=== PATIENT | male | born 1990 | race Caucasian/White ===

== ENCOUNTER 2018-06-22 04:53 | Emergency (ER) | payer OTHER ==
--- NOTE | 2018-06-22 05:26 | ED ---
Skin Complaint - HPI Summary HPI Summary: This patient is a 28 year old M presenting to [facility] with a chief complaint of a diffuse pruritic erythematous rasch to the abdomen and back and pants line for the past day. Patient reports a history of eczema and environmental allegies. Symptoms are unrelieved by hydrocortisone and antihistamines. Patient has not other complaints at this time. - History of Current Complaint Chief Complaint: EDRashSkinAbscess Time Seen by Provider: 06/22/18 05:17 Stated Complaint: RASH Hx Obtained From: Patient Onset/Duration: Started Days Ago Skin Exposure Onset/Duration: Days Ago Timing: Constant Pain Intensity: 0 Skin Location: Diffuse, Abdomen Character: Pruritus, Redness Alleviating Symptom(s): Nothing Associated Signs & Symptoms: Negative - Allergy/Home Medications Allergies/Adverse Reactions: Allergies Allergy/AdvReac Type Severity Reaction Status Date / Time Penicillins Allergy Unknown Verified 06/22/18 04:57 Reaction Details PMH/Surg Hx/FS Hx/Imm Hx Respiratory History: Reports: Hx Seasonal Allergies GI History: Reports: Other GI Disorders - gastritis Infectious Disease History: No Infectious Disease History: Denies: Traveled Outside the [place] in Last 30 Days - Family History Known Family History: Positive: Hypertension - Social History Occupation: Student Smoking Status (MU): Unknown if Ever Smoked Review of Systems Negative: Shortness Of Breath Positive: Rash All Other Systems Reviewed And Are Negative: Yes Physical Exam - Summary Physical Exam Summary: Appearance: Well-appearing, Well-nourished, lying in bed comfortably Skin: Warm, dry, serpiginous flat erythematous rash involves most of anterior abdomen and chest, particularly prominent around to belt line, no urticaria noted, no sign of infection Eyes: sclera anicteric, no conjunctival pallor ENT: mucous membranes moist, pharynx appears normal Neck: Supple, nontender Respiratory: Clear to auscultation, no signs of respiratory distress Cardiovascular: Normal S1, S2. No murmurs. Normal distal pulses in tibial and radial bilaterally. Abdomen: Soft, nontender, normal active bowel sounds present Musculoskeletal: Normal, Strength/ROM Intact Neurological: A&Ox3, awake and alert, mentation is normal, speech is fluent and appropriate Psychiatric: affect is normal, does not appear anxious or depressed Triage Information Reviewed: Yes Vital Signs On Initial Exam: Initial Vitals Temp Pulse Resp BP Pulse Ox 98 F 92 20 150/98 98 10/28/18 04:54 06/22/18 04:54 06/22/18 04:54 06/22/18 04:54 06/22/18 04:54 Vital Signs Reviewed: Yes Diagnostics - Vital Signs Vital Signs Temp Pulse Resp BP Pulse Ox 06/22/18 04:54 98 F 92 20 150/98 98 - Laboratory Lab Statement: Any lab studies that have been ordered have been reviewed, and results considered in the medical decision making process. Course/Dx - Course Course Of Treatment: 28 year old M presenting with diffuse pruritic erythematous rasch to the abdomen and back and pants line for the past day. Symptoms are unrelieved by hydrocortisone and antihistamines. Patient has not other complaints at this time. Patient is given his first dose of Prednisone while in the ED, as his pharmacy is not open on Sundays, and is given a prescription prednisone for upon discharge. - Diagnoses Provider Diagnoses: Rash and nonspecific skin eruption Discharge - Sign-Out/Discharge Documenting (check all that apply): Patient Departure - discharge - Discharge Plan Condition: Good Disposition: HOME Prescriptions: predniSONE [Prednisone 20 MG TAB] 40 mg PO DAILY #10 tablet predniSONE [Prednisone 20 MG TAB] 40 mg PO DAILY #10 tablet Patient Education Materials: Dermatitis (ED) Referrals: Edinson Cohen MD [Medical Doctor] - As Soon As Possible - Billing Disposition and Condition Condition: GOOD Disposition: Home - Attestation Statements Document Initiated by Pinedaibave: Yes Documenting Scribe: Dayna Haji Provider For Whom Marissa is Documenting (Include Credential): Aurelio Liriano MD Scribe Attestation: Dayna Gay, scribed for Aurelio Liriano MD on 06/24/18 at 0014. Scribe Documentation Reviewed: Yes Provider Attestation: The documentation as recorded by the Dayna kline accurately reflects the service I personally performed and the decisions made by me, Aurelio Liriano MD
[2018-06-22] MEDS ORDERED: predniSONE TAB* 20 MG PO ONE (05:32)
[2018-06-22 05:48] VITALS: BP 112/59
== END 2018-06-22 05:42 | disposition home or self-care (01) ==
LOC: ED 04:53
DX: R21 Rash and other nonspecific skin eruption (principal); Z88.0 Allergy status to penicillin
CPT/HCPCS: 99282; J7512

== ENCOUNTER 2019-11-14 16:11 | Emergency (ER) | payer OTHER ==
--- NOTE | 2019-11-14 16:37 | ED ---
Shortness of Breath - HPI Summary HPI Summary: This pt is a 29 Y/O M presenting to [facility] with a CC of SOB that began yesterday at night before bed. He states that he has recently traveled from [facility] on 11/08/2019 back to [place]. He states that he also developed a sore throat and a dry cough since then. He denies any fever, N/V/D, CP, and myalgia. He states that he has no aggravating or alleviating factors. He has a PMHx of HTN and a wisdom tooth surgery. Medications reviewed. Allergies noted. - History of Current Complaint Chief Complaint: EDUpperRespComplaint Time Seen by Provider: 11/14/19 16:13 Hx Obtained From: Patient Onset/Duration: Sudden Onset, Lasting Days - 1, Still Present Timing: Constant Current Severity: Mild Dyspnea At: Rest Aggravating Factors: Nothing Alleviating Factors: Nothing Associated Signs & Symptoms: Negative - fever, N/V/D, CP, and myalgia, Cough ( Nonproductive) - Allergy/Home Medications Allergies/Adverse Reactions: Allergies Allergy/AdvReac Type Severity Reaction Status Date / Time almond Allergy Abdominal Verified 11/14/19 16:39 Pain celery Allergy Abdominal Verified 11/14/19 16:39 Pain crab Allergy Abdominal Verified 11/14/19 16:39 Pain cumin Allergy Abdominal Verified 11/14/19 16:39 Pain olive oil Allergy Abdominal Verified 11/14/19 16:39 Pain paprika Allergy Abdominal Verified 11/14/19 16:39 Pain Penicillins Allergy Unknown Verified 11/14/19 16:30 Reaction Details soy Allergy Abdominal Verified 11/14/19 16:39 Pain Yeast Allergy Abdominal Verified 11/14/19 16:39 Pain kidney colvin Allergy Abdominal Uncoded 11/14/19 16:39 Pain smart colvin Allergy Abdominal Uncoded 11/14/19 16:39 Pain Home Medications: Home Medications Atenolol TAB* [Tenormin TAB* 25 MG] 25 mg PO DAILY 09/15/18 [History Confirmed 11/14/19] Albuterol 2.5MG/3ML (0.083%)* [Ventolin 2.5 MG/3 ML NEB.FRANNIE*] 2.5 mg INH Q4H PRN #20 [email or web address] 11/14/19 [Rx] Albuterol Sulfate [Albuterol Sulfate Hfa] 2 inh INH Q4H PRN 11/14/19 [History Confirmed 11/14/19] predniSONE 20 mg TAB [Deltasone 20 MG TAB*] 40 mg PO DAILY 4 Days #8 tab [Rx] PMH/Surg Hx/FS Hx/Imm Hx Previously Healthy: Yes Endocrine/Hematology History: Denies: Hx Diabetes Cardiovascular History: Reports: Hx Hypertension Respiratory History: Reports: Hx Seasonal Allergies GI History: Reports: Other GI Disorders - gastritis Infectious Disease History: No Infectious Disease History: Denies: Traveled Outside the [place] in Last 30 Days - Family History Known Family History: Positive: Hypertension - Social History Occupation: Employed Full-time Lives: With Family Alcohol Use: Occasionally Hx Substance Use: No Substance Use Type: Reports: None Hx Tobacco Use: No Smoking Status (MU): Never Smoked Tobacco Review of Systems Negative: Fever, Chills Positive: Sore Throat Negative: Chest Pain Positive: Shortness Of Breath, Cough Negative: Vomiting, Diarrhea, Nausea All Other Systems Reviewed And Are Negative: Yes Physical Exam - Summary Physical Exam Summary: General: Well appearing, no distress Neck: no pharyngeal erythema Cardiovascular: Skin is well perfused Pulmonary: No respiratory distress, no tachypnea, 97-99% on room air, speaking in full sentences Abdomen: Non-distended Skin: Warm, pink, dry Psych: Normal affect Neuro: A&Ox3 Back: no CVA tenderness. Triage Information Reviewed: Yes Vital Signs On Initial Exam: Initial Vitals Temp Pulse Resp BP Pulse Ox 98.2 F 76 22 122/84 96 11/14/19 16:23 11/14/19 16:23 11/14/19 16:23 11/14/19 16:23 11/14/19 16:23 Vital Signs Reviewed: Yes Procedures - Sedation Patient Received Moderate/Deep Sedation with Procedure: No Diagnostics - Vital Signs Vital Signs Temp Pulse Resp BP Pulse Ox 11/14/19 16:23 98.2 F 76 22 122/84 96 - Laboratory Lab Statement: Any lab studies that have been ordered have been reviewed, and results considered in the medical decision making process. - Radiology CXR Radiology Interpretation Completed By: Radiologist Summary of Radiographic Findings: No focal airspace opacification. ED physician has reviewed this report. Course/Dx - Course Course Of Treatment: Patient is here with mild shortness of breath and cough. Patient does have a history of asthma. Patient was not in any respiratory distress upon arrival. Patient was given a dose of prednisone after a chest x- ray was performed which is negative. Patient was tested for Covid 19 and given quarantine instructions. Patient was discharged with albuterol nebulizer solution as his family is bringing their nebulizer machine to him. - Diagnoses Provider Diagnoses: Cough, Breath shortness Discharge ED - Sign-Out/Discharge Documenting (check all that apply): Patient Departure - discharge - Discharge Plan Condition: Good Disposition: HOME Prescriptions: Albuterol 2.5MG/3ML (0.083%)* [Ventolin 2.5 MG/3 ML NEB.FRANNIE*] 2.5 mg INH Q4H PRN #20 [email or web address] PRN Reason: Wheezing predniSONE 20 mg TAB [Deltasone 20 MG TAB*] 40 mg PO DAILY 4 Days #8 tab Patient Education Materials: Shortness of Breath (ED) Referrals: [facility] [place] [Primary Care Provider] - 2 Days Additional Instructions: PLEASE FOLLOW UP WITH YOUR PRIMARY CARE PHYSICIAN IN 1-3 DAYS AND RETURN TO THE EMERGENCY DEPARTMENT FOR ANY NEW OR WORSENING SYMPTOMS. You were seen in the emergency department for coronavirus rule out. The department of health will contact you within 24 hours. Due to the pandemic, you should stay in your house and self quarantine. See the separate quarantine paper for further instructions. You should wear a mask if you're outside of your personal room. We encourage hand washing as well as limited contact with other people including the elderly and the immunocompromised. If any studies were not completed at the time of discharge you will be called with the relevant results. Return to emergency department for severe trouble breathing, worsening or concerning symptoms It was a pleasure taking care of you today. - Billing Disposition and Condition Condition: GOOD Disposition: Home - Attestation Statements Document Initiated by Scribe: Yes Documenting Scribe: Jarrod Reyes Provider For Whom Marissa is Documenting (Include Credential): Tucker Dodd MD Scribe Attestation: Jarrod Gay, scribed for Tucker Dodd MD on 11/14/19 at 2009. Scribe Documentation Reviewed: Yes Provider Attestation: The documentation as recorded by the Jarrod kline accurately reflects the service I personally performed and the decisions made by me, Tucker Dodd MD Status of Scribe Document: Viewed
[2019-11-14 18:16] VITALS: BP 110/80
== END 2019-11-14 18:14 | disposition home or self-care (01) ==
LOC: ED 16:11
DX: R05 Cough (principal); R06.02 Shortness of breath; I10 Essential (primary) hypertension; J02.9 Acute pharyngitis, unspecified; Z20.828 Contact with and (suspected) exposure to other viral communicable diseases; Z79.52 Long term (current) use of systemic steroids; Z88.0 Allergy status to penicillin
CPT/HCPCS: 71045; 99282; J7512; U0002